=== PATIENT | male | born 1945 | race Caucasian/White ===

== ENCOUNTER 2017-03-20 14:16 | Outpatient (CLI) | payer MEDICARE ==
--- NOTE | 2017-03-20 17:27 | MRI ---
MRI OF LUMBAR SPINE WITHOUT CONTRAST 03/20/17 HISTORY: Back and left leg pain for a long time. COMPARISON: None. FINDINGS: The abdominal aorta is aneurysmal measuring up to 4.8 cm, similar to the CT angiogram exam of 09/13/16 . No retroperitoneal adenopathy. The visualized portions of the kidneys are unremarkable. There is a small cyst at the left kidney which is exophytic. Background marrow signal is normal. No acute fracture or malalignment. The conus medullaris terminates at the superior end plate of L1. Levels are as follows: T12-L1: No neural foraminal or spinal canal narrowing. L1-2: Circumferential disc bulge. There is mild facet arthropathy. There is mild to moderate bilatera l neural foraminal narrowing. The spinal canal measures approximately 8 mm. L2-3: Moderate circumferential disc space height loss and disc bulge. There is a superimposed right p aracentral and lateral recess disc protrusion abutting the exiting L3 nerve root. Spinal canal is jj rowed to 7 mm. There is mild left and moderate right sided neural foraminal narrowing. L3-4: Moderate degenerative disc space height loss with circumferential disc bulge. Ligamentum flavum hypertrophy. Moderate to severe degenerative facet arthrosis. There is moderate to severe bilateral neural foraminal narrowing. The spinal canal measures approximately 9 mm. L4-5: Moderate degenerative disc space height loss. Circumferential disc bulge. Moderate facet arthro jorje. The spinal canal measures 1 cm. There is moderate to severe left and right sided neural forami nal narrowing due to combination of this hypertrophic facet changes and disc bulge. L5-S1: There is a right subarticular posterior disc protrusion causing some moderate to severe narrow ing of the right neural foramina. There is moderate facet arthropathy causing moderate left sided kim ral foraminal narrowing. Spinal canal is not narrowed. IMPRESSION: Mild to moderate degenerative spondylosis as described above, worst at L4-5 and L5-S1. POS: [facility]
--- NOTE | 2017-03-20 19:09 | MRI ---
MR OF THE LEFT SHOULDER WITHOUT CONTRAST 03/20/17 INDICATION: Left shoulder pain. COMPARISON: None. FINDINGS: There is a partial thickness articular surface tear involving the near entirety of the supraspinatus with some extension into the anterior infraspinatus at the footprint. There is a delaminating compone nt that extends into the musculotendinous junction of the infraspinatus. The partial thickness tear i nvolves approximately 50% of the tendon thickness. There is a focal full thickness component involvin g the anterior to mid supraspinatus measuring 1.0 x 1.4 cm in its greatest mediolateral and AP dimens ions respectively. The biceps tendon is located. Biceps anchor complex appears within normal limits. The inferior glenoh umeral labral ligamentous complex appears within normal limits. Glenohumeral articular surface is normal appearing. There is mild sized joint effusion. There is mild muscular atrophy of the supraspinatus. There is non specific mild atrophy of the teres minor. The visualized quadrangular space appears within normal sainz its. The deltoid has normal signal intensity and bulk. There is moderate AC joint osteoarthrosis. No enlarged lymph nodes are evident. IMPRESSION: 1. Partial thickness articular surface tear involving the supraspinatus with a focal full thickn ess component involving the anterior to mid supraspinatus at the footprint. There is mild supraspinat us muscular atrophy. 2. There is partial thickness tear extension into the anterior infraspinatus from the supraspina tus. There is a delaminating component that extends into the musculotendinous junction of the infrasp inatus. 3. Nonspecific muscular atrophy of the teres minor without overt muscular atrophy changes to the deltoid may reflect sequela of prior quadrangular space syndrome or partial axillary nerve injury. 4. Moderate AC joint osteoarthrosis. POS: [facility]
== END 2017-03-20 14:17 | disposition home or self-care (01) ==
LOC: MRI 14:16
PROVIDERS: ATTEND Orthopaedic Surgery
DX: M25.512 Pain in left shoulder (principal); M75.101 Unspecified rotator cuff tear or rupture of right shoulder, not specified as traumatic; S46.911A Strain of unspecified muscle, fascia and tendon at shoulder and upper arm level, right arm, initial encounter; M19.011 Primary osteoarthritis, right shoulder; M47.26 Other spondylosis with radiculopathy, lumbar region
CPT/HCPCS: 72148

== ENCOUNTER 2017-04-08 11:16 | Outpatient (CLI) | payer MEDICARE ==
[2017-04-08 12:38] LABS: Mean Corpuscular HGB CONC 34.2 g/dL (32.0-36.0); Mean Corpuscular Hemoglobin 36.4 pg (27.0-31.0); Platelet Count 156 thou/uL (130-400); RBC Distribution Width 11.7 % (11.5-14.5); Red Blood Cell (RBC) Count 3.28 mill/uL (4.70-6.10); White Blood Cell (WBC) Count 5.5 thou/uL (4.8-10.8)
[2017-04-08 12:41] LABS: INR-International Normal Ratio 1.1; Prothrombin Time 13.9 SEC (12.0-14.7)
--- NOTE | 2017-04-08 12:53 | RAD ---
CHEST TWO VIEWS: History: Pre op Comparison: None. FINDINGS: There is a patchy opacity in the periphery of the left lower lobe. No pneumothorax. No effusion. Cardiac silhouette size is upper limits of normal. IMPRESSION: 1. Patchy opacity left lung base may represent infection or atelectasis. 2. Mild cardiomegaly. POS: [facility]
[2017-04-08 12:59] LABS: Anion Gap 13 mmol/L (10-20); BUN (Urea Nitrogen) 26 mg/dL (8.4-25.7); Calc. Creatinine Clearance 0 mL/min (70-130); Carbon Dioxide 23 mmol/L (23-31); Chloride 110 mmol/L (98-107); Estimated GFR-MDRD 71; Glucose 95 mg/dL (83-110); Sodium 142 mmol/L (136-145)
--- NOTE | 2017-05-03 16:30 | EKG ---
Test Reason : Blood Pressure : / mmHG Vent. Rate : 058 BPM Atrial Rate : 058 BPM P-R Int : 224 ms QRS Dur : 096 ms QT Int : 426 ms P-R-T Axes : 049 -02 013 degrees QTc Int : 418 ms Sinus bradycardia with 1st degree A-V block Otherwise normal ECG When compared with ECG of 18-AUG-2014 06:43, T wave inversion less evident in Inferior leads Nonspecific T wave abnormality has replaced inverted T waves in Anterior leads Confirmed by DR. Lucie BORREGO ([id number]) on 05/03/2017 4:30:19 PM Referred By: HUMBERTO Confirmed By:DR. Lucie BORREGO
== END 2017-04-08 11:17 | disposition home or self-care (01) ==
LOC: LABBT 11:16
PROVIDERS: ATTEND Orthopaedic Surgery
DX: Z01.818 Encounter for other preprocedural examination (principal); M75.102 Unspecified rotator cuff tear or rupture of left shoulder, not specified as traumatic; I51.7 Cardiomegaly; R91.8 Other nonspecific abnormal finding of lung field
CPT/HCPCS: 71046; 80048; 85027; 85610; 93005; 93010

== ENCOUNTER 2018-02-03 08:28 | Outpatient (CLI) | payer MEDICARE ==
--- NOTE | 2018-02-03 10:55 | CT ---
PRE AND POST CONTRAST ENHANCED CTA ABDOMEN: History: Follow up abdominal aortic aneurysm. Technique: Pre and post contrast enhanced CTA is performed. 2D and 3D reconstruct images performed on an independent 3D workstation. FINDINGS: Images demonstrate the lung bases to be unremarkable. No evidence of free intraperitoneal seen. Area of hypodensity seen in the right hepatic lobe, unchanged, compatible with a likely cyst. A secon d similar lesion also seen in the left hepatic lobe on axial images #26. Spleen is unremarkable. The pancreas is unremarkable. Gallbladder and adrenal glands unremarkable. Th e kidneys are unremarkable. Two right renal arteries seen. The SMA, celiac, two right renal arteries, as well as left renal artery are patent. In the infrarenal abdominal aorta, there is an aneurysm. Previous diameter maximally measured 4.3 x 5 .0 cm. This has increased now measuring up to 5.3 x 5.1 cm. The inferior mesenteric artery is not vis ualized and appears to be occluded from its origin. The aneurysm extends from the infrarenal abdomina l aorta originating approximately 3.5 cm from the takeoff of the renal arteries extending inferiorly to just above the aortic bifurcation. No definite evidence of leak seen surrounding this abdominal aortic aneurysm. Multilevel facet degenerative changes seen. IMPRESSION: Increasing diameter of infrarenal abdominal aortic aneurysm. POS: [facility]
[2018-02-03] MEDS ORDERED: Iopamidol 370 76% 100 ML VIAL ONE (15:03)
== END 2018-02-03 08:29 | disposition home or self-care (01) ==
LOC: CT 08:28
PROVIDERS: ATTEND Thoracic Surgery (Cardiothoracic Vascular Surgery)
DX: I71.4 Abdominal aortic aneurysm, without rupture (principal)
CPT/HCPCS: 74175; 82565

== ENCOUNTER 2018-04-23 07:59 | Outpatient (CLI) | payer MEDICARE ==
[2018-04-23 13:37] LABS: Hemoglobin 13.9 g/dL (14.0-18.0); Mean Corpuscular HGB CONC 33.9 g/dL (32.0-36.0); Mean Corpuscular Hemoglobin 34.6 pg (27.0-31.0); Mean Platelet Volume 8.2 fL (7.4-10.4); Platelet Count 157 thou/uL (130-400); RBC Distribution Width 15.5 % (11.5-14.5); Red Blood Cell (RBC) Count 4.02 mill/uL (4.70-6.10); White Blood Cell (WBC) Count 4.9 thou/uL (4.8-10.8)
[2018-04-23 14:01] LABS: Anion Gap 13 mmol/L (10-20); BUN (Urea Nitrogen) 14 mg/dL (8.4-25.7); Calc. Creatinine Clearance 0 mL/min (70-130); Calcium 9.3 mg/dL (7.8-10.44); Carbon Dioxide 24 mmol/L (23-31); Chloride 108 mmol/L (98-107); Estimated GFR-MDRD 83; Glucose 78 mg/dL (83-110); Potassium 3.5 mmol/L (3.5-5.1); Sodium 141 mmol/L (136-145)
== END 2018-04-23 08:00 | disposition home or self-care (01) ==
LOC: LABBT 07:59
PROVIDERS: ATTEND Thoracic Surgery (Cardiothoracic Vascular Surgery)
DX: Z01.818 Encounter for other preprocedural examination (principal); I71.4 Abdominal aortic aneurysm, without rupture
CPT/HCPCS: 80048; 85027; 86850; 86900; 86901; 93005; 93010

== ENCOUNTER 2018-04-23 10:30 | Inpatient (IN) | payer MEDICARE ==
[2018-04-24] MEDS ORDERED: CEFAZOLIN 2 GM/50 ML BAG ONE (06:21)
[2018-04-24] MEDS ORDERED: Heparin 10,000 UNITS/1 ML VIAL ONE (06:35)
[2018-04-24] MEDS ORDERED: Phenylephrine HCL 10 MG/ML VIAL ONE (06:48)
[2018-04-24] MEDS ORDERED: Fentanyl 100 MCG/2 ML VIAL ONE (06:48)
--- NOTE | 2018-04-24 07:18 | HP ---
HISTORY OF PRESENT ILLNESS: This is a 72-year-old gentleman, followed with abdominal aortic aneurysm reaching 5 cm. Plan at this time is for endovascular aneurysm repair. PAST MEDICAL HISTORY: Includes hypertension, bleeding peptic ulcer, high cholesterol, coronary artery disease, sleep apnea. PAST SURGICAL HISTORY: Coronary artery stenting x3 [place] [address] Park, appendectomy, upper GI endoscopy this past year for bleeding ulcer. SOCIAL HISTORY: He is a nonsmoker. Rents out heavy equipment and since 2015. MEDICATIONS: Include, 1. Coreg 6.25 b.i.d. 2. Lipitor 40 a day. 3. Aspirin 81 a day. 4. Lasix 20 a day. 5. Norvasc 5 a day. 6. Iron supplements. 7. Vitamin supplements. 8. Potassium supplements. 9. Protonix 40 a day. ALLERGIES: LISINOPRIL CAUSES COUGH. PHYSICAL EXAMINATION: VITAL SIGNS: Weight 200, blood pressure 130 heart rate 65. NECK: No carotid bruits. LUNGS: Clear to auscultation. CARDIAC: Regular rate and rhythm. No murmurs. LUNGS: Clear to auscultation. ABDOMEN: Soft and nontender. No palpable aneurysm. Obese. EXTREMITIES: No edema. Palpable pulses throughout. PLAN: Plan at this time is for abdominal aortic aneurysm repair and informed consent has been obtained. Job ID: [id number] MTDD
[2018-04-24] MEDS ORDERED: Protamine Sulfate 50 MG/5 ML VIAL ONE (10:13)
[2018-04-24] MEDS ORDERED: Ondansetron HCl/PF 4 MG/2 ML Vial IVP PRN (10:40)
[2018-04-24] MEDS ORDERED: Promethazine HCl 25 MG/ML VIAL SLOW IVP PRN (10:40)
[2018-04-24] MEDS ORDERED: Promethazine HCl 25 MG/ML VIAL IM PRN ×2 (10:40→15:53)
[2018-04-24] MEDS ORDERED: hydrALAZINE 20 MG/ML VIAL ONE (13:10)
--- NOTE | 2018-04-24 13:46 | OP ---
DATE OF PROCEDURE: 04/24/2018 DIAGNOSIS: Abdominal aortic aneurysm. PROCEDURE PERFORMED: Endovascular aneurysm repair with an Endurant II system using a main body left 32, 21, 66 and the contralateral limb 16, 16, 156. CLAIM BENEFIT SPECIALIST: Song Morrell MD CONTRAST: 100 mL. FLUOROSCOPY: 40 minutes 16 seconds. DESCRIPTION OF PROCEDURE: After adequate anesthesia had been obtained, the patient was prepped and draped. An ultrasound-guided puncture of the common femoral artery was performed and the ProGlide x2 were deployed on each side. Following which, a 12-Green[place] sheaths were placed. Following this, a pigtail was placed up the left side and angiography obtained. Via the right side, attempts to cannulate the inferior mesenteric artery were unsuccessful with several wires and catheters and attention was then turned to placement of the main body up the left side with the pigtail up the right side. Repeat angiography was performed to identify the left renal artery and the graft was then deployed. Following this, the right limb was cannulated and the second limb advanced and deployed. Balloons were then used to inflate and completion angiography revealed a type 1 endoleak. Repeat ballooning of the neck x2 was then performed and the type 1 endoleak resolved and there appeared to be a late type 2 endoleak. Following this, a ProGlides were secured over Bentson wire after sheath removal and wound was dressed. The patient had palpable pedal pulses in both feet. Tolerated the procedure well. Job ID: [id number]
[2018-04-24] MEDS ORDERED: Lidocaine 1% PF 5 ML VIAL ONE (15:38)
[2018-04-24] MEDS ORDERED: PHENYLEPHRINE-NS 100 MCG/ML 10 ML SYRINGE ONE (15:38)
[2018-04-24] MEDS ORDERED: Rocuronium Bromide 10 MG/ML (10ML VIAL) ONE (15:38)
[2018-04-24] MEDS ORDERED: Heparin 10,000 UNITS/ 10 ML VIAL ONE (15:38)
[2018-04-24] MEDS ORDERED: Glycopyrrolate 0.2 MG/ML 5 ML SYRINGE ONE (15:38)
[2018-04-24] MEDS ORDERED: Dexamethasone 20 MG/5 ML VIAL ONE (15:38)
[2018-04-24] MEDS ORDERED: Ondansetron PF 4 MG/2 ML Vial ONE (15:38)
[2018-04-24] MEDS ORDERED: Fentanyl 100 MCG/2 ML VIAL SLOW IVP PRN ×2 (15:53)
[2018-04-24] MEDS ORDERED: HYDROcodone/Acetaminophen 5/325 mg Tablet PO PRN ×2 (15:53)
[2018-04-24] MEDS ORDERED: Ondansetron PF 4 MG/2 ML Vial IVP PRN (15:53)
[2018-04-24] MEDS ORDERED: Nitroglycerin 50 MG/250 ML BOT 250 ML IVPB PRN (15:53)
[2018-04-24] MEDS ORDERED: CEFAZOLIN/Water 2 GM/20 ML SYRINGE SLOW IVP SCH (15:53)
[2018-04-24] MEDS ORDERED: Phenylephrine 10 MG/NS 250 ML 250 ML IVPB PRN (15:53)
[2018-04-24] MEDS ORDERED: hydrALAZINE 20 MG/ML VIAL SLOW IVP PRN (15:53)
[2018-04-24] MEDS ORDERED: Acetaminophen 325 MG TAB PO PRN (15:53)
[2018-04-24 15:57] VITALS: BMI 29.5
[2018-04-24] MEDS: Carvedilol 6.25 MG TAB PO SCH (17:41)
[2018-04-24] MEDS: CEFAZOLIN 2 GM/50 ML-DEXTROSE 2 GM in Premix Bag 1 BAG IVPB SCH (17:41)
[2018-04-24] MEDS: Sodium Chloride 0.9% 1,000 ML IV SCH (17:45)
[2018-04-25] MEDS: CEFAZOLIN 2 GM/50 ML-DEXTROSE 2 GM in Premix Bag 1 BAG IVPB SCH ×2 (01:40→07:39)
[2018-04-25 03:44] LABS: Anion Gap 11 mmol/L (10-20); BUN (Urea Nitrogen) 17 mg/dL (8.4-25.7); Calc. Creatinine Clearance 95 mL/min (70-130); Calcium 8.3 mg/dL (7.8-10.44); Carbon Dioxide 22 mmol/L (23-31); Chloride 110 mmol/L (98-107); Estimated GFR-MDRD 87; Glucose 116 mg/dL (83-110); Potassium 3.2 mmol/L (3.5-5.1); Sodium 140 mmol/L (136-145)
[2018-04-25 04:02] LABS: #Lymphocytes 0.6 thou/uL (1.20-3.40); #Monocytes 0.4 thou/uL (0.11-0.59); #Neutrophils 7.3 thou/uL (1.40-6.50); %Basophils 0.2 % (0.0-1.0); %Eosinophils 0.1 % (0.0-10.0); %Lymphocytes 7.2 % (21.0-51.0); %Neutrophils 87.6 % (42.0-75.0); Hemoglobin 11.9 g/dL (14.0-18.0); Mean Corpuscular HGB CONC 33.4 g/dL (32.0-36.0); Mean Corpuscular Hemoglobin 34.4 pg (27.0-31.0); Mean Platelet Volume 7.2 fL (7.4-10.4); Platelet Count 109 thou/uL (130-400); RBC Distribution Width 15.6 % (11.5-14.5); Red Blood Cell (RBC) Count 3.45 mill/uL (4.70-6.10); White Blood Cell (WBC) Count 8.4 thou/uL (4.8-10.8)
[2018-04-25] MEDS: Sodium Chloride 0.9% 1,000 ML IV SCH (05:01)
[2018-04-25] MEDS: Carvedilol 6.25 MG TAB PO SCH (07:37)
[2018-04-25 07:51] VITALS: BP 133/76
[2018-04-25 08:07] VITALS: TEMP 98.2
--- NOTE | 2018-04-25 09:33 | DIS ---
DATE OF ADMISSION: 04/24/2018 DATE OF DISCHARGE: 04/25/2018 The patient was admitted and underwent endovascular aneurysm repair with an Endurant II system two-piece left main body. His postoperative course was uneventful with stable creatinine. Slight decrease in hemoglobin from 13.9 to 11.9. He will be discharged home today with minimal bruising in the groins and to resume his home medicines. Job ID: [id number]
== END 2018-04-25 12:05 | disposition home or self-care (01) | DRG 269 ==
LOC: SURG A 04-24 05:38 → CCU 04-24 15:51
PROVIDERS: ADMIT Thoracic Surgery (Cardiothoracic Vascular Surgery); ATTEND Thoracic Surgery (Cardiothoracic Vascular Surgery)
PROC: 04V03DZ Restriction of Abdominal Aorta with Intraluminal Device, Percutaneous Approach (ICD-10-PCS; principal; 2018-04-24)
DX: I71.4 Abdominal aortic aneurysm, without rupture (principal); I10 Essential (primary) hypertension; E78.00 Pure hypercholesterolemia, unspecified; I25.10 Atherosclerotic heart disease of native coronary artery without angina pectoris; G47.30 Sleep apnea, unspecified; Z98.61 Coronary angioplasty status; Z90.49 Acquired absence of other specified parts of digestive tract; Z79.82 Long term (current) use of aspirin; Z79.899 Other long term (current) drug therapy; Z88.8 Allergy status to other drugs, medicaments and biological substances
CPT/HCPCS: 36415; 76000; 80048; 85025; 85027; 86850; 86900; 86901; 93005; 93010; C1760; C1762; C1769; C1894; J0360; J1100; J1642; J1644; J2001; J2370; J2405; J2720; J3010

== ENCOUNTER 2018-07-22 08:20 | Outpatient (CLI) | payer MEDICARE ==
--- NOTE | 2018-07-22 10:07 | MRI ---
MRI CERVICAL SPINE WITHOUT CONTRAST: HISTORY: Degenerative disk disease, neck pain and numbness radiating down left arm. FINDINGS: Vertebral body heights and marrow signal are maintained. Multilevel degenerative changes are seen ma nifested by disk-osteophyte complexes, uncovertebral and facet hypertrophic changes. These result in severe bilateral neural foraminal stenosis at C3-4, C4-5, C5-6 levels and severe left-sided neural f oraminal stenosis and moderate right-sided neural foraminal stenosis at C6-7 levels. There is replac ement of the anterior thecal sac and impingement of the anterior spinal cord at C4-5 and C5-6 levels. No evidence of cord edema, syringomyelia, or myelomalacia is seen. No tonsillar herniation is note d. IMPRESSION: Cervical spondylosis with multilevel neural foraminal and central canal stenoses as discussed above. POS: [facility]
== END 2018-07-22 08:21 | disposition home or self-care (01) ==
LOC: SCSMRI 08:20
PROVIDERS: ATTEND Orthopaedic Surgery
DX: M50.10 Cervical disc disorder with radiculopathy, unspecified cervical region (principal); M47.22 Other spondylosis with radiculopathy, cervical region; M48.02 Spinal stenosis, cervical region
CPT/HCPCS: 72141

== ENCOUNTER 2018-07-30 10:21 | Outpatient (CLI) | payer MEDICARE ==
--- NOTE | 2018-07-30 11:58 | CT ---
CTA ABDOMEN AND PELVIS WITH AND WITHOUT IV CONTRAST AND 3D REFORMATTED IMAGING: COMPARISON: Prior CTA of the abdomen, dated 02/03/2018, from [facility]. CT abdomen and pelvis, dated 09/14/2016. FINDINGS: There has been interval placement of an aortobiiliac endograft graft. The excluded aneurysmal sac me asures up to 5.5 cm, which is slightly more prominent than on the comparison CTA from 02/03/2018, whe re it measured up to 5.3 cm. There is a small flash of contrast enhancement seen within the lower as pect of the excluded aneurysmal sac, near the iliac endograft bifurcation, on image 224 of series 4, suspicious for endoleak. This may be related to opacification of the lower aspect of the aneurysmal sac, due to retrograde flow from the inferior mesenteric artery. The right renal artery is duplicated. Both renal segments are fully opacified. There is some mild n arrowing involving the origin of the superior-most renal artery. There is mild narrowing involving t he origin of the main left renal artery. The celiac and SMA appear widely patent. Both iliac vascul ature appear widely patent. There is stable mild aneurysmal dilatation of the left common iliac artery, measuring up to 1.7 cm. The lung bases demonstrate bibasilar atelectasis. There are stable small cysts seen involving the li kimber. The adrenal glands, pancreas, and spleen appear within normal limits. The kidneys are normal a ppearing. No free fluid or enlarged lymph nodes are evident. There is scattered degenerative and osteoarthriti c change. IMPRESSION: 1. Findings of type II endoleak involving the inferior aspect of the excluded aneurysmal sac, likely from retrograde flow from the patient's inferior mesenteric artery. The excluded aneurysmal sac is s lightly enlarged from the most recent comparison, dated 02/03/2018, where it previously measured 5.3 cm. It now measures 5.5 cm. 2. Mild narrowing of the left main renal artery and the superior-most right renal artery origins. T he superior mesenteric artery and celiac are widely patent. 3. Mild aneurysmal dilatation of the left common iliac artery, measuring up to 1.7 cm, likely stable to the most recent comparison. 4. Colonic diverticulosis. 5. Stable hepatic cysts. POS: [facility]
[2018-07-30] MEDS ORDERED: ISOVUE-370 76%-LOCM 1 ML ONE (14:38)
== END 2018-07-30 10:22 | disposition home or self-care (01) ==
LOC: BICCT 10:21
PROVIDERS: ATTEND Thoracic Surgery (Cardiothoracic Vascular Surgery)
DX: I71.4 Abdominal aortic aneurysm, without rupture (principal); K57.30 Diverticulosis of large intestine without perforation or abscess without bleeding; K76.89 Other specified diseases of liver; I72.3 Aneurysm of iliac artery; I70.1 Atherosclerosis of renal artery
CPT/HCPCS: 74174; 82565; Q9966

== ENCOUNTER 2018-09-30 10:57 | Outpatient (CLI) | payer MEDICARE ==
--- NOTE | 2018-09-30 11:29 | RAD ---
RADIOGRAPH LUMBAR SPINE 3 VIEWS: DATE: 09/30/2018 HISTORY: 73-year-old male with lumbar radiculopathy. TECHNIQUE: 3 lateral views in flexion, extension, and neutral. FINDINGS: For the purposes of this report, it will be assumed that there are 5 lumbar-type vertebrae. Vertebral body heights are maintained. Degenerative facet disease throughout mid and lower levels, high-grade. Mild to moderate disc space narrowing at L4-5 and L1-2. Degenerative retrolisthesis of L1 on L2. Mild grade 1 anterolisthesis of L4 on L5 facet DJD. No definite instability between flexion and extension. Stent graft within abdominal aortic aneurysm. IMPRESSION: 1. Lumbar spondylosis with high-grade lower and mid level facet osteoarthrosis, and mild to moderate degenerative disc disease at a few levels. 2. Mild grade 1 spondylolisthesis at L4-5. 3. No instability. 4. Abdominal aortic endograft for abdominal aortic aneurysm.
--- NOTE | 2018-09-30 12:04 | MRI ---
MRI Lumbar Spine WO Con History: Low back pain. Fall. Comparison: Lumbar spine radiograph same day Findings: There is aorta stent graft excluding an aortic aneurysm. No hydronephrosis. No retroperiton eal periaortic adenopathy. No marrow infiltrative process. The conus medullaris terminates near the mid L1 vertebral body. Levels are as follows: L1/L2: Modic type I endplate changes. Moderate degenerative disc space height loss with circumferenti al disc osteophyte complex. Mild effacement of the ventral CSF space. Mild endplate hypertrophy. Spinal canal measures 9 mm. Moderate bilateral neural foraminal narrowing. L2/L3: Mild degenerative disc space height loss. Moderate facet arthropathy. Circumferential disc bul ge. Moderate bilateral neural foraminal narrowing. Mild ligamentum flavum hypertrophy. Spinal canal measures 8 mm. L3/L4: Mild degenerative disc space height loss with circumferential disc bulge. Moderate to severe b ilateral neural foraminal narrowing with abutment of the exiting and traversing nerve roots. Malignant flavum hypertrophy. Moderate hypertrophic facet arthropathy on the right and moderate to se shaye on the left. Moderate to severe left and moderate right neural foraminal narrowing with abutment of the exiting and traversing nerve roots. L4/L5: Severe facet arthropathy with effusions within both facet joints. 1 to [address]-based posterior disc bulge. Moderate to severe bilateral neural foraminal narrowing with abutment of the exiting and traversing nerve roots. Spinal canal is narrowed to approximately 7 mm. L5/S1: Mild degenerative disc space height loss. Broad-based posterior disc osteophyte complex greate st in the right subsequent foraminal and extra foraminal zone. Severe right and moderate to severe left neural foraminal narrowing with abutment of the bilateral exiting and right traversing nerve chevy ts. There is narrowing of the interspinous space from L1-L5 with endplate sclerosis of the spinous proces ses. Impression: Multilevel advanced degenerative disease of the lumbar spine with neural foraminal and sp inal canal narrowing.
== END 2018-09-30 10:58 | disposition home or self-care (01) ==
LOC: TBSIIMAG 10:57
PROVIDERS: ATTEND Neurological Surgery
DX: M47.26 Other spondylosis with radiculopathy, lumbar region (principal); M51.16 Intervertebral disc disorders with radiculopathy, lumbar region; M43.16 Spondylolisthesis, lumbar region; M48.061 Spinal stenosis, lumbar region without neurogenic claudication; Z95.828 Presence of other vascular implants and grafts; Z86.79 Personal history of other diseases of the circulatory system
CPT/HCPCS: 72100; 72148

== ENCOUNTER 2020-04-26 09:12 | Outpatient (CLI) | payer MEDICARE ==
--- NOTE | 2020-04-26 10:59 | BD ---
DEXA BONE DENSITY STUDY: HISTORY: Postmenopausal. FINDINGS: Lumbar Spine: BMD (g/cm2) L1 1.202 T-Score: +1.2 L2 1.209 T-Score: +1.0 L3 1.244 T-Score: +1.3 L4 1.259 T-Score: +1.5 L1-L4 1.231 T-Score: +1.3 Femoral Neck: 0.915 T-Score: -0.1 Total Femur: 1.011 T-Score: -0.1 Impression: Normal bone mineral density of the lumbar spine and left femoral neck. POS: [facility]
== END 2020-04-26 09:13 | disposition home or self-care (01) ==
LOC: BICMAMMO 09:12
PROVIDERS: ATTEND Family Medicine
DX: T14.8XXA Other injury of unspecified body region, initial encounter (principal); Z13.820 Encounter for screening for osteoporosis
CPT/HCPCS: 77080

== ENCOUNTER 2020-07-22 12:01 | Outpatient (CLI) | payer MEDICARE ==
[2020-07-22 13:17] LABS: Anion Gap 12 mmol/L (10-20); BUN (Urea Nitrogen) 14 mg/dL (8.4-25.7); Calc. Creatinine Clearance 0 mL/min (70-130); Calcium 9.1 mg/dL (7.8-10.44); Carbon Dioxide 27 mmol/L (23-31); Chloride 106 mmol/L (98-107); Glucose 90 mg/dL (83-110); Potassium 4.3 mmol/L (3.5-5.1); Sodium 141 mmol/L (136-145)
[2020-07-23 03:27] LABS: SARS-CoV-2 PCR by NAA Not Detected (NotDetected)
== END 2020-07-22 12:02 | disposition home or self-care (01) ==
LOC: LABBT 12:01
PROVIDERS: ATTEND Orthopaedic Surgery
DX: Z01.818 Encounter for other preprocedural examination (principal); M17.12 Unilateral primary osteoarthritis, left knee; Z20.822 Contact with and (suspected) exposure to COVID-19
CPT/HCPCS: 80048; 93005; U0003; U0005; 87635; 93010

== ENCOUNTER → 2020-07-27 | Day surgery (SDC) | payer MEDICARE ==
[2020-07-26 14:13] VITALS: BMI 31.3
[~2020-07-27] MED LIST: Fentanyl 100 MCG/2 ML VIAL ONE; Heparin 10,000 UNITS/ 10 ML VIAL ONE; Iopamidol 370 76% 100 ML VIAL ONE; Iopamidol 370 76% 50 ML VIAL FS ONE; Lidocaine 1% (PF) 30 ML VIAL ONE; Midazolam HCl 2 mg/2 ml Vial ONE; Protamine Sulfate 50 MG/5 ML VIAL ONE
== END ==
LOC: CCL 05:44
PROVIDERS: ATTEND Internal Medicine Cardiovascular Disease
PROC: 4A023N7 Measurement of Cardiac Sampling and Pressure, Left Heart, Percutaneous Approach (ICD-10-PCS; principal; 2020-07-27)
PROC: B2111ZZ Fluoroscopy of Multiple Coronary Arteries using Low Osmolar Contrast (ICD-10-PCS; 2020-07-27)
DX: I25.10 Atherosclerotic heart disease of native coronary artery without angina pectoris (principal); G47.30 Sleep apnea, unspecified; E78.00 Pure hypercholesterolemia, unspecified; I11.0 Hypertensive heart disease with heart failure; I50.32 Chronic diastolic (congestive) heart failure; I71.4 Abdominal aortic aneurysm, without rupture; E78.2 Mixed hyperlipidemia; I35.1 Nonrheumatic aortic (valve) insufficiency; Z87.891 Personal history of nicotine dependence; Z79.82 Long term (current) use of aspirin; Z79.899 Other long term (current) drug therapy; Z95.5 Presence of coronary angioplasty implant and graft
CPT/HCPCS: 85347; 93458; 99152; 99153; J1644; J2001; J2250; J2720; J3010; Q9967

== ENCOUNTER 2020-08-25 17:30 | Inpatient (IN) | payer MEDICARE ==
[2020-09-12 10:40] VITALS: BMI 42.3
[2020-09-13] MEDS ORDERED: Tranexamic Acid 1,000 MG/10 ML VIAL ONE (06:05)
[2020-09-13] MEDS ORDERED: Midazolam HCl 2 mg/2 ml Vial ONE ×2 (06:14→06:36)
[2020-09-13] MEDS ORDERED: Fentanyl 100 MCG/2 ML VIAL ONE ×2 (06:14→06:36)
[2020-09-13] MEDS ORDERED: VANCOMYCIN 2 GRAM/400 ML BAG 2 GM in Premix Bag 1 BAG IVPB SCH (06:15)
[2020-09-13] MEDS ORDERED: Vancomycin 1.5 GRAM/300 ML BAG 1.5 GM in Premix Bag 1 BAG IVPB SCH ×2 (07:00→21:00)
[2020-09-13] MEDS ORDERED: Dexamethasone 20 MG/5 ML VIAL ONE (07:33)
[2020-09-13] MEDS ORDERED: Ropivacaine 2% HCl/PF (20 MG/10 ML VIAL) ONE (07:33)
[2020-09-13] MEDS ORDERED: ePHEDrine Sulfate 50 MG/10 ML VIAL ONE (07:33)
[2020-09-13] MEDS ORDERED: Lidocaine 1% PF 5 ML VIAL ONE (07:33)
[2020-09-13] MEDS ORDERED: Ondansetron PF 4 MG/2 ML Vial ONE (07:33)
[2020-09-13] MEDS ORDERED: PROPOFOL 200 MG/20 ML VIAL ONE (07:33)
[2020-09-13] MEDS ORDERED: Bupivacaine HCl 0.5%/Epinephrine 1:200,000/PF 30 ml Vial ONE (07:33)
[2020-09-13] MEDS ORDERED: Glycopyrrolate 0.2 MG/ML 5 ML SYRINGE ONE (07:33)
[2020-09-13] MEDS ORDERED: Bupivacaine 0.25% HCL 30 ML VIAL ONE (08:14)
[2020-09-13] MEDS ORDERED: EPINEPHrine 1 MG/ML AMP ONE (08:14)
[2020-09-13] MEDS ORDERED: Ondansetron HCl/PF 4 MG/2 ML Vial IVP PRN (08:39)
[2020-09-13] MEDS ORDERED: Promethazine HCl 25 MG/ML VIAL IM PRN ×3 (08:39→10:48)
[2020-09-13] MEDS ORDERED: Promethazine HCl 25 MG/ML VIAL SLOW IVP PRN (08:39)
[2020-09-13] MEDS ORDERED: Fentanyl 100 MCG/2 ML VIAL IV PRN (09:26)
[2020-09-13] MEDS ORDERED: traMADol HCl 50 MG TAB PO PRN ×2 (09:30)
[2020-09-13] MEDS ORDERED: Ropivacaine 0.2% 550 ML 550 ML NERVE BLCK SCH (09:30)
[2020-09-13] MEDS ORDERED: HYDROcodone/Acetaminophen 10/325 mg Tablet PO PRN ×3 (09:30→10:48)
[2020-09-13] MEDS ORDERED: Zolpidem Tartrate 5 MG TAB PO PRN ×2 (09:30→10:48)
[2020-09-13] MEDS ORDERED: Ondansetron PF 4 MG/2 ML Vial IVP PRN ×2 (09:30→10:48)
[2020-09-13] MEDS ORDERED: Acetaminophen 325 MG TAB PO PRN (10:48)
[2020-09-13] MEDS ORDERED: Fentanyl 100 MCG/2 ML VIAL SLOW IVP PRN ×2 (10:48)
[2020-09-13] MEDS ORDERED: diphenhydrAMINE 25 MG CAP PO PRN (10:48)
[2020-09-13] MEDS ORDERED: Ketorolac Tromethamine 30 MG/ML VIAL IVP PRN (10:48)
[2020-09-13] MEDS: Senokot S 8.6-50 MG TAB PO SCH ×2 (11:51→21:02)
[2020-09-13] MEDS: Multivitamin W/ Minerals 1 TAB PO SCH (11:51)
[2020-09-13] MEDS: Sodium Chloride 0.9% 1,000 ML IV SCH ×2 (11:51→20:52)
[2020-09-13] MEDS: Ketorolac Tromethamine 30 MG/ML VIAL IVP SCH ×3 (12:35→23:46)
[2020-09-13] MEDS: CEFAZOLIN 2 GM in Premix Bag 1 BAG IVPB SCH ×2 (14:29→23:46)
[2020-09-13] MEDS ORDERED: Cepastat Lozenges 1 LOZ PO PRN (19:22)
[2020-09-13] MEDS ORDERED: Aspirin 81 mg Enteric Coated Tablet PO SCH (21:00)
[2020-09-13] MEDS ORDERED: Ferrous Gluconate 324 MG TAB PO SCH (21:00)
[2020-09-13] MEDS ORDERED: Vancomycin HCl 1.5 GM in Sodium Chloride 0.9% 250 ML 300 ML IVPB SCH (21:00)
[2020-09-14] MEDS ORDERED: hydrALAZINE 20 MG/ML VIAL SLOW IVP PRN (00:58)
[2020-09-14 05:14] LABS: Hemoglobin 10.3 g/dL (14.0-18.0); Mean Corpuscular HGB CONC 35.5 g/dL (32.0-36.0); Mean Platelet Volume 7.4 fL (7.4-10.4); Platelet Count 150 thou/uL (130-400); RBC Distribution Width 11.9 % (11.5-14.5); White Blood Cell (WBC) Count 13.2 thou/uL (4.8-10.8)
[2020-09-14] MEDS: Ketorolac Tromethamine 30 MG/ML VIAL IVP SCH ×3 (05:31→18:16)
[2020-09-14] MEDS: Multivitamin W/ Minerals 1 TAB PO SCH (10:02)
[2020-09-14] MEDS: Ferrous Sulfate 325 MG TAB PO SCH (10:02)
[2020-09-14] MEDS: Atorvastatin Calcium 40 MG TAB PO SCH (10:02)
[2020-09-14] MEDS: Senokot S 8.6-50 MG TAB PO SCH ×2 (10:02→20:36)
[2020-09-14] MEDS: Carvedilol 6.25 MG TAB PO SCH ×2 (10:03→20:35)
[2020-09-14] MEDS: Aspirin Chewable 81 MG TAB PO SCH ×2 (10:03→21:24)
[2020-09-14] MEDS: Furosemide 20 MG TAB PO SCH ×2 (10:04→14:39)
[2020-09-14] MEDS: Sodium Chloride 0.9% 1,000 ML IV SCH ×2 (10:06→18:30)
[2020-09-14] MEDS: HYDROcodone/Acetaminophen 10/325 mg Tablet PO PRN (10:21)
[2020-09-14] MEDS ORDERED: Aspirin Chewable 81 MG TAB ONE (21:15)
[2020-09-14] MEDS ORDERED: Aspirin Chewable 81 MG TAB PO SCH (21:45)
[2020-09-15] MEDS: Ketorolac Tromethamine 30 MG/ML VIAL IVP SCH ×2 (00:53→06:29)
[2020-09-15] MEDS: Sodium Chloride 0.9% 1,000 ML IV SCH (01:55)
[2020-09-15 05:44] LABS: Hemoglobin 8.8 g/dL (14.0-18.0); Mean Corpuscular HGB CONC 34.4 g/dL (32.0-36.0); Mean Corpuscular Hemoglobin 37.1 pg (27.0-31.0); Mean Platelet Volume 7.2 fL (7.4-10.4); Platelet Count 117 thou/uL (130-400); Red Blood Cell (RBC) Count 2.38 mill/uL (4.70-6.10); White Blood Cell (WBC) Count 6.8 thou/uL (4.8-10.8)
[2020-09-15 07:52] VITALS: TEMP 98.9
[2020-09-15] MEDS: HYDROcodone/Acetaminophen 10/325 mg Tablet PO PRN (08:07)
[2020-09-15] MEDS: Carvedilol 6.25 MG TAB PO SCH (08:08)
[2020-09-15] MEDS: Atorvastatin Calcium 40 MG TAB PO SCH (08:08)
[2020-09-15] MEDS: Furosemide 20 MG TAB PO SCH (08:08)
[2020-09-15] MEDS: Ferrous Sulfate 325 MG TAB PO SCH (08:08)
[2020-09-15] MEDS: Multivitamin W/ Minerals 1 TAB PO SCH (08:09)
[2020-09-15 08:10] VITALS: BP 148/76
[2020-09-15] MEDS: Senokot S 8.6-50 MG TAB PO SCH (08:11)
[2020-09-15] MEDS ORDERED: Aspirin Chewable 81 MG TAB PO SCH (09:00)
== END 2020-09-15 11:10 | disposition home or self-care (01) | DRG 470 ==
LOC: EDSTATUS 08-30 17:30 → SURG A 09-13 05:37
PROVIDERS: ADMIT Orthopaedic Surgery; ATTEND Orthopaedic Surgery
PROC: 0SRD0J9 Replacement of Left Knee Joint with Synthetic Substitute, Cemented, Open Approach (ICD-10-PCS; principal; 2020-09-13)
PROC: 3E0T3BZ Introduction of Anesthetic Agent into Peripheral Nerves and Plexi, Percutaneous Approach (ICD-10-PCS; 2020-09-13)
DX: M17.12 Unilateral primary osteoarthritis, left knee (principal); I50.42 Chronic combined systolic (congestive) and diastolic (congestive) heart failure; I25.10 Atherosclerotic heart disease of native coronary artery without angina pectoris; E78.5 Hyperlipidemia, unspecified; I25.5 Ischemic cardiomyopathy; I11.0 Hypertensive heart disease with heart failure; Z95.5 Presence of coronary angioplasty implant and graft; Z85.828 Personal history of other malignant neoplasm of skin; Z79.899 Other long term (current) drug therapy; Z79.82 Long term (current) use of aspirin
CPT/HCPCS: 36415; 85027; A4306; C1713; C1776; J0171; J0690; J1100; J1885; J2250; J2405; J2704; J2795; J3010; J3370; S0020

== ENCOUNTER 2020-09-08 16:49 | Outpatient (CLI) | payer MEDICARE ==
[2020-09-08 17:39] LABS: Hemoglobin 13.2 g/dL (13.5-17.5); Mean Corpuscular HGB CONC 34.5 g/dL (32.0-36.0); Mean Corpuscular Hemoglobin 36.1 pg (27.0-33.0); Mean Corpuscular Volume 104.6 fl (81.2-95.1); Mean Platelet Volume 9.5 fl (7.4-10.4); Platelet Count 171 10x3/uL (150-450); RBC Distribution Width 12.8 % (11.5-14.5); Red Blood Cell (RBC) Count 3.66 10x6/uL (4.32-5.72); White Blood Cell (WBC) Count 5.1 10x3/uL (3.5-10.5)
[2020-09-08 17:58] LABS: Prothrombin Time 11.4 sec (9.5-12.1)
[2020-09-08 18:17] LABS: Anion Gap 15 mmol/L (10-20); BUN (Urea Nitrogen) 17 mg/dL (8.4-25.7); Calc. Creatinine Clearance 0 mL/min (70-130); Calcium 9.2 mg/dL (7.8-10.44); Carbon Dioxide 23 mmol/L (23-31); Chloride 106 mmol/L (98-107); Glucose 86 mg/dL (83-110); Sodium 140 mmol/L (136-145)
== END 2020-09-08 16:50 | disposition home or self-care (01) ==
LOC: LABBT 16:49
PROVIDERS: ATTEND Orthopaedic Surgery
DX: Z01.812 Encounter for preprocedural laboratory examination (principal); M17.12 Unilateral primary osteoarthritis, left knee
CPT/HCPCS: 80048; 85027; 85610; 87081

== ENCOUNTER 2021-04-06 10:47 | Outpatient (CLI) | payer MEDICARE ==
[2021-04-06 12:08] LABS: #Eosinphils 0.2 10x3/uL (0.0-0.5); #Monocytes 0.7 10x3/uL (0.0-1.1); #Neutrophils 3.1 10x3/uL (1.5-8.4); %Basophils 0.6 % (0.0-2.0); %Eosinophils 3.8 % (0.0-6.0); %Lymphocytes 24.5 % (18.0-47.0); %Monocytes 12.4 % (0.0-10.0); %Neutrophils 58.3 % (40.0-75.0); Hemoglobin 12.4 g/dL (13.5-17.5); Mean Corpuscular HGB CONC 34.1 g/dL (32.0-36.0); Mean Corpuscular Hemoglobin 35.7 pg (27.0-33.0); Mean Corpuscular Volume 104.9 fl (81.2-95.1); Mean Platelet Volume 9.9 fl (7.4-10.4); Platelet Count 136 10x3/uL (150-450); RBC Distribution Width 12.7 % (11.5-14.5); Red Blood Cell (RBC) Count 3.47 10x6/uL (4.32-5.72); White Blood Cell (WBC) Count 5.2 10x3/uL (3.5-10.5)
[2021-04-06 12:20] LABS: Prothrombin Time 11.1 sec (9.5-12.1)
[2021-04-06 12:22] LABS: Anion Gap 12 mmol/L (10-20); BUN (Urea Nitrogen) 18 mg/dL (8.4-25.7); Calc. Creatinine Clearance 0 mL/min (70-130); Calcium 8.8 mg/dL (7.8-10.44); Carbon Dioxide 23 mmol/L (23-31); Chloride 110 mmol/L (98-107); Glucose 91 mg/dL (83-110); Potassium 3.9 mmol/L (3.5-5.1); Sodium 141 mmol/L (136-145)
[2021-04-07 01:31] LABS: SARS-CoV-2 PCR by NAA Not Detected (NotDetected)
== END 2021-04-06 10:48 | disposition home or self-care (01) ==
LOC: LABBT 10:47
PROVIDERS: ATTEND Orthopaedic Surgery
DX: Z01.818 Encounter for other preprocedural examination (principal); M17.11 Unilateral primary osteoarthritis, right knee; Z20.822 Contact with and (suspected) exposure to COVID-19
CPT/HCPCS: 80048; 85025; 85610; 87081; 93005; U0003; U0005; 93010

== ENCOUNTER 2021-04-06 11:00 | Inpatient (IN) | payer MEDICARE ==
[2021-04-05 09:51] VITALS: BMI 30.4
[2021-04-11] MEDS ORDERED: Vancomycin 1.5 GRAM/300 ML BAG 1.5 GM in Premix Bag 1 BAG IVPB SCH ×2 (06:15→20:00)
[2021-04-11] MEDS ORDERED: ceFAZolin 2 GM/DEX 5% 100 ML BAG ONE (06:35)
[2021-04-11] MEDS ORDERED: Sodium Chloride 0.9% 100 ML ONE (06:35)
[2021-04-11] MEDS ORDERED: EPINEPHrine 1 MG/ML AMP ONE (06:35)
[2021-04-11] MEDS ORDERED: Bupivacaine 0.25% 10 ML VIAL ONE (06:35)
[2021-04-11] MEDS ORDERED: Tranexamic Acid 1,000 MG/10 ML VIAL ONE (06:35)
[2021-04-11] MEDS ORDERED: Fentanyl 100 MCG/2 ML VIAL ONE ×3 (06:46→10:09)
[2021-04-11] MEDS ORDERED: Midazolam HCl 2 mg/2 ml Vial ONE (06:46)
[2021-04-11] MEDS ORDERED: Dexamethasone 20 MG/5 ML VIAL ONE (07:20)
[2021-04-11] MEDS ORDERED: Bupivacaine HCl 0.5%/Epinephrine 1:200,000/PF 30 ml Vial ONE (07:20)
[2021-04-11] MEDS ORDERED: Ketorolac Tromethamine 30 MG/ML VIAL ONE (07:20)
[2021-04-11] MEDS ORDERED: Ondansetron PF 4 MG/2 ML Vial ONE (07:20)
[2021-04-11] MEDS ORDERED: ePHEDrine 50 MG/ML VIAL ONE (07:20)
[2021-04-11] MEDS ORDERED: PROPOFOL 200 MG/20 ML VIAL ONE (07:20)
[2021-04-11] MEDS ORDERED: Fentanyl 100 MCG/2 ML VIAL IV PRN (07:22)
[2021-04-11] MEDS ORDERED: HYDROcodone/Acetaminophen 10/325 mg Tablet PO PRN (07:30)
[2021-04-11] MEDS ORDERED: Ropivacaine 0.2% 550 ML 550 ML NERVE BLCK SCH (07:30)
[2021-04-11] MEDS ORDERED: Promethazine HCl 25 MG/ML VIAL IM PRN ×2 (07:30→10:03)
[2021-04-11] MEDS ORDERED: traMADol HCl 50 MG TAB PO PRN ×2 (07:30)
[2021-04-11] MEDS ORDERED: Ondansetron PF 4 MG/2 ML Vial IVP PRN ×2 (07:30→10:03)
[2021-04-11] MEDS ORDERED: Zolpidem Tartrate 5 MG TAB PO PRN ×2 (07:30→10:03)
[2021-04-11] MEDS ORDERED: diphenhydrAMINE 25 MG CAP PO PRN (10:03)
[2021-04-11] MEDS ORDERED: Acetaminophen 325 MG TAB PO PRN (10:03)
[2021-04-11] MEDS ORDERED: Aspirin 81 mg Enteric Coated Tablet PO SCH (12:00)
[2021-04-11] MEDS: Sodium Chloride 0.9% 1,000 ML IV SCH ×2 (12:34→21:02)
[2021-04-11] MEDS ORDERED: ceFAZolin Sodium/D5W 2 GM in Premix Bag 1 BAG IVPB SCH (15:00)
[2021-04-11] MEDS ORDERED: ceFAZolin 2 GM/Dextrose 50 ML 2 GM in Premix Bag 1 BAG IVPB SCH (15:00)
[2021-04-11] MEDS: ceFAZolin 2 GM/Dextrose 50 ML 2 GM in Premix Bag 1 BAG IVPB SCH (17:46)
[2021-04-11] MEDS ORDERED: Atorvastatin Calcium 40 MG TAB PO SCH (21:00)
[2021-04-11] MEDS: Aspirin 81 mg Enteric Coated Tablet PO SCH (21:02)
[2021-04-12] MEDS: ceFAZolin 2 GM/Dextrose 50 ML 2 GM in Premix Bag 1 BAG IVPB SCH (02:23)
[2021-04-12] MEDS: Sodium Chloride 0.9% 1,000 ML IV SCH ×2 (03:04→17:25)
[2021-04-12] MEDS: Multivitamin W/ Minerals 1 TAB PO SCH (08:19)
[2021-04-12] MEDS: Ferrous Gluconate 324 MG TAB PO SCH ×2 (08:19→17:38)
[2021-04-12] MEDS: Senokot S 8.6-50 MG TAB PO SCH ×2 (08:19→20:52)
[2021-04-12] MEDS: Aspirin 81 mg Enteric Coated Tablet PO SCH ×2 (08:19→20:52)
[2021-04-12 10:54] LABS: Hemoglobin 11.4 g/dL (14.0-18.0); Mean Corpuscular HGB CONC 34.1 g/dL (32.0-36.0); Mean Corpuscular Hemoglobin 36.7 pg (27.0-31.0); Mean Platelet Volume 7.7 fL (7.4-10.4); Platelet Count 94 thou/uL (130-400); RBC Distribution Width 11.8 % (11.5-14.5); Red Blood Cell (RBC) Count 3.11 mill/uL (4.70-6.10); White Blood Cell (WBC) Count 9.3 thou/uL (4.8-10.8)
[2021-04-12] MEDS: HYDROcodone/Acetaminophen 10/325 mg Tablet PO PRN (18:48)
[2021-04-12] MEDS: Carvedilol 3.125 MG TAB PO SCH (20:52)
[2021-04-12] MEDS: Atorvastatin Calcium 40 MG TAB PO SCH (20:52)
[2021-04-12] MEDS ORDERED: Carvedilol 6.25 MG TAB PO SCH (21:00)
[2021-04-13] MEDS: Sodium Chloride 0.9% 1,000 ML IV SCH ×3 (01:04→23:22)
[2021-04-13] MEDS: HYDROcodone/Acetaminophen 10/325 mg Tablet PO PRN ×4 (01:46→20:39)
[2021-04-13 08:16] LABS: Hemoglobin 10.2 g/dL (14.0-18.0); Mean Corpuscular HGB CONC 34.5 g/dL (32.0-36.0); Mean Corpuscular Hemoglobin 37.7 pg (27.0-31.0); Mean Platelet Volume 7.7 fL (7.4-10.4); Platelet Count 125 thou/uL (130-400); RBC Distribution Width 11.9 % (11.5-14.5); Red Blood Cell (RBC) Count 2.71 mill/uL (4.70-6.10); White Blood Cell (WBC) Count 8.2 thou/uL (4.8-10.8)
[2021-04-13] MEDS ORDERED: Ferrous Sulfate 325 MG TAB PO SCH (09:00)
[2021-04-13] MEDS: Carvedilol 3.125 MG TAB PO SCH (09:03)
[2021-04-13] MEDS: Aspirin 81 mg Enteric Coated Tablet PO SCH ×2 (09:03→20:39)
[2021-04-13] MEDS: Senokot S 8.6-50 MG TAB PO SCH ×2 (09:03→20:39)
[2021-04-13] MEDS: Multivitamin W/ Minerals 1 TAB PO SCH (09:03)
[2021-04-13] MEDS: Ferrous Gluconate 324 MG TAB PO SCH ×2 (09:03→17:41)
[2021-04-13] MEDS: Atorvastatin Calcium 40 MG TAB PO SCH (20:39)
[2021-04-14 05:30] LABS: Hemoglobin 10.1 g/dL (14.0-18.0); Mean Corpuscular HGB CONC 33.9 g/dL (32.0-36.0); Mean Corpuscular Hemoglobin 36.4 pg (27.0-31.0); Mean Platelet Volume 6.6 fL (7.4-10.4); Platelet Count 122 thou/uL (130-400); RBC Distribution Width 11.7 % (11.5-14.5); Red Blood Cell (RBC) Count 2.76 mill/uL (4.70-6.10); White Blood Cell (WBC) Count 7.4 thou/uL (4.8-10.8)
[2021-04-14] MEDS: HYDROcodone/Acetaminophen 10/325 mg Tablet PO PRN ×2 (05:44→12:17)
[2021-04-14] MEDS: hydrALAZINE 20 MG/ML VIAL SLOW IVP PRN ×2 (06:48→12:48)
[2021-04-14] MEDS ORDERED: Carvedilol 6.25 MG TAB PO SCH (08:00)
[2021-04-14] MEDS: Sodium Chloride 0.9% 1,000 ML IV SCH (09:20)
[2021-04-14] MEDS: Ferrous Gluconate 324 MG TAB PO SCH (09:52)
[2021-04-14] MEDS: Multivitamin W/ Minerals 1 TAB PO SCH (09:52)
[2021-04-14] MEDS: Aspirin 81 mg Enteric Coated Tablet PO SCH (09:52)
[2021-04-14] MEDS: Senokot S 8.6-50 MG TAB PO SCH (09:52)
[2021-04-14 13:05] VITALS: BP 167/78
[2021-04-14 13:30] VITALS: TEMP 98.8
== END 2021-04-14 14:50 | disposition home or self-care (01) | DRG 470 ==
LOC: SURG A 04-11 05:49
PROVIDERS: ADMIT Orthopaedic Surgery; ATTEND Orthopaedic Surgery
PROC: 0SRC0J9 Replacement of Right Knee Joint with Synthetic Substitute, Cemented, Open Approach (ICD-10-PCS; principal; 2021-04-11)
PROC: 0QP Lower Bones, Removal (ICD-10-PCS; 2021-04-11)
DX: M17.11 Unilateral primary osteoarthritis, right knee (principal); I50.42 Chronic combined systolic (congestive) and diastolic (congestive) heart failure; I25.10 Atherosclerotic heart disease of native coronary artery without angina pectoris; E78.5 Hyperlipidemia, unspecified; I25.5 Ischemic cardiomyopathy; I11.0 Hypertensive heart disease with heart failure; G47.33 Obstructive sleep apnea (adult) (pediatric); E55.9 Vitamin D deficiency, unspecified; Z90.49 Acquired absence of other specified parts of digestive tract; Z79.899 Other long term (current) drug therapy
CPT/HCPCS: 36415; 76000; 85027; A4306; C1713; C1776; J0171; J0360; J0690; J1100; J1885; J2250; J2405; J2704; J2795; J3010; J3370; J3490; J7050; S0020

== ENCOUNTER 2022-12-05 09:33 | Outpatient (CLI) | payer MEDICARE ==
[2022-12-05] MEDS ORDERED: Iopamidol 370 76% 100 ML VIAL ONE (09:54)
== END 2022-12-05 09:34 | disposition home or self-care (01) ==
LOC: BICCT 09:33
PROVIDERS: ATTEND Thoracic Surgery (Cardiothoracic Vascular Surgery)
DX: I71.40 Abdominal aortic aneurysm, without rupture, unspecified (principal)
CPT/HCPCS: 74174; 82565; Q9967